=== PATIENT | female | born 2005 | race Caucasian/White ===

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

== ENCOUNTER 2024-03-10 13:13 | Emergency (ER) | payer BC, OTHER ==
--- NOTE | 2024-03-10 13:35 | ED ---
Abdominal Pain HPI - General Chief Complaint: Abdominal Pain Stated Complaint: Abd pain-Sent by [facility] Time Seen by Provider: 03/10/24 13:30 Source: patient, RN notes reviewed Mode of arrival: ambulatory Limitations: no limitations - History of Present Illness Initial Comments: This is a 18-year-old female with no significant past medical history who presents to the emergency department chief complaint of left lower pelvic pain that started this morning. Patient also states that she had an episode of blood in her stool this morning that she describes as clots within the stool. Patient is also having urinary symptoms including increased urgency and decreased urinary output over the last few days. She denies fevers, nausea, vomiting, dark or tarry sools, hememesis, epigastric pain, hematuria, back or flank pain. States that she is currently on her menstrual cycle with no abnormalities compared to previous cycles. - Related Data Home Medications Medication Instructions Recorded Confirmed No Known Home Medications 03/10/24 03/10/24 Allergies Allergy/AdvReac Type Severity Reaction Status Date / Time No Known Allergies Allergy Verified 03/10/24 14:01 Review of Systems ROS Statement: Those systems with pertinent positive or pertinent negative responses have been documented in the HPI. ROS Other: All systems not noted in ROS Statement are negative. Past Medical History Past Medical History: No Reported History History of Any Multi-Drug Resistant Organisms: None Reported Past Surgical History: No Surgical Hx Reported Past Psychological History: No Psychological Hx Reported Smoking Status: Never smoker Past Alcohol Use History: None Reported Past Drug Use History: Marijuana General Exam Limitations: no limitations General appearance: alert, in no apparent distress Head exam: Present: atraumatic, normocephalic, normal inspection Eye exam: Present: normal appearance, PERRL, EOMI. Absent: scleral icterus, conjunctival injection, periorbital swelling ENT exam: Present: normal exam, mucous membranes moist Neck exam: Present: normal inspection. Absent: tenderness, meningismus, lymphadenopathy Respiratory exam: Present: normal lung sounds bilaterally. Absent: respiratory distress, wheezes, rales, rhonchi, stridor Cardiovascular Exam: Present: regular rate, normal rhythm, normal heart sounds. Absent: systolic murmur, diastolic murmur, rubs, gallop, clicks GI/Abdominal exam: Present: soft, tenderness (LLQ/pelvic region), normal bowel sounds. Absent: distended, guarding, rebound, rigid Rectal exam: Present: normal inspection, normal rectal tone, heme (+) stool Extremities exam: Present: normal inspection, full ROM, normal capillary refill. Absent: tenderness, pedal edema, joint swelling, calf tenderness Back exam: Present: normal inspection Neurological exam: Present: alert, oriented X3, CN II-XII intact Psychiatric exam: Present: normal affect, normal mood Skin exam: Present: warm, dry, intact, normal color. Absent: rash Course Vital Signs 03/10/24 03/10/24 13:14 15:48 Temperature 97.9 F 98.7 F Pulse Rate 81 75 Respiratory 18 16 Rate Blood Pressure 131/57 117/74 O2 Sat by Pulse 98 98 Oximetry Medical Decision Making - Medical Decision Making Was pt. sent in by a medical professional or institution ([facility], BUILDING CONSTRUCTION INSPECTOR, urgent care, hospital, or skilled nursing...) When possible be specific @ -No Did you speak to anyone other than the patient for history (EMS, parent, family, police, friend...)? What history was obtained from this source @ -No Did you review nursing and triage notes (agree or disagree)? Why? @ -I reviewed and agree with nursing and triage notes Were old charts reviewed (outside hosp., previous admission, EMS record, old EKG, old radiological studies, urgent care reports/EKG's, skilled nursing records)? Report findings @ -No old charts were reviewed Differential Diagnosis (chest pain, altered mental status, abdominal pain women, abdominal pain men, vaginal bleeding, weakness, fever, dyspnea, syncope, headache, dizziness, GI bleed, back pain, seizure, CVA, palpatations, mental health, musculoskeletal)? @ -Differential Abdominal Pain Women: Appendicitis, Cholecystitis, diverticulosis, ischemic bowel, pancreatitis, hepatitis, UTI, gastroenteritis, AAA, incarcerated hernia, bowel obstruction, constipation, inflammatory bowel, hepatitis, peptic ulcer disease, splenic infarction, perforated viscus, vulvitis, ovarian torsion, PID, kidney stone, pl acenta abruption, this is not meant to be an all-inclusive list. EKG interpreted by me (3pts min.). @ -None X-rays interpreted by me (1pt min.). @ -None done CT interpreted by me (1pt min.). @ -None done U/S interpreted by me (1pt. min.). @ -Ultrasound of the pelvis reveals a 3.4 cm hyperechoic lesion in the right ovary recommend follow up in 6 to 8 weeks to consider evaluation. no evidence of Torsion of either side with no pelvic fluid noted. What testing was considered but not performed or refused? (CT, X-rays, U/S, labs)? Why? @ -None What meds were considered but not given or refused? Why? @ -None Did you discuss the management of the patient with other professionals (professionals i.e. , PA, BUILDING CONSTRUCTION INSPECTOR, lab, RT, psych nurse, forensic social worker, newswriter, teacher, anti air warfare operations officer, residential case manager)? Give summary @ -No Was smoking cessation discussed for >3mins.? @ -No Was critical care preformed (if so, how long)? @ -No Were there social determinants of health that impacted care today? How? (Homelessness, low income, unemployed, alcoholism, drug addiction, transportation, low edu. Level, literacy, decrease access to med. care, correction, rehab)? @ -No Was there de-escalation of care discussed even if they declined (Discuss DNR or withdrawal of care, Hospice)? DNR status @ -No What co-morbidities impacted this encounter? (DM, HTN, Smoking, COPD, CAD, Cancer, CVA, ARF, Chemo, Hep., AIDS, mental health diagnosis, sleep apnea, morbid obesity)? @ -None Was patient admitted / discharged? Hospital course, mention meds given and route, prescriptions, significant lab abnormalities, going to OR and other pertinent info. @ -Discharged. 18-year-old female with left lower quadrant and pelvic pain. On examination patient noted to have. Mild pain with palpation of the left lower pelvis. There is no pain, rebound tenderness, rigidity noted, normal and equal bowel sounds. Rectal examination no signs of external hemorrhoids, external sphincter tone inact. Patient CBC and CMP unremarkable.. Moderate leukocyte esterase and beta hCG negative. Stool occult blood positive. Patient laboratory testing unremarkable recommend follow-up outpatient with primary care provider for further evaluation of positive stool occult likely colonoscopy. Discussion with patient to follow-up with a repeat pelvic ultrasound in 6 to 8 weeks for resolution of hemorrhagic cyst. Patient is in agreement with this. Discussed strict return parameters with the patient. Discussed with Dr. Zurita. Patient states that she has taken the first dose of antibiotics prescribed by urgent care for her urinary tract infection, and the patient continues on course. Undiagnosed new problem with uncertain prognosis? @ -No Drug Therapy requiring intensive monitoring for toxicity (Heparin, Nitro, Insulin, Cardizem)? @ -No Were any procedures done? @ -No Diagnosis/symptom? @ -abdominal pain, hematochezia, hemorrhagic ovarian cyst Acute, or Chronic, or Acute on Chronic? @ -acute Uncomplicated (without systemic symptoms) or Complicated (systemic symptoms)? @ -uncomplicated Side effects of treatment? @ -No Exacerbation, Progression, or Severe Exacerbation? @ -No Poses a threat to life or bodily function? How? (Chest pain, [place], [place], pneumonia, PE, COPD, DKA, ARF, appy, cholecystitis, CVA, Diverticulitis, Homicidal, Suicidal, threat to staff... and all critical care pts) @ -No - Lab Data Result diagrams: 03/10/24 14:18 03/10/24 14:18 Lab Results 03/10/24 03/10/24 03/10/24 Range/Units 14:18 14:18 14:18 WBC 7.8 (4.0-11.0) k/uL RBC 4.89 (3.80-5.40) m/uL Hgb 14.3 (11.4-16.0) gm/dL Hct 45.3 (34.0-46.0) % MCV 92.8 (80.0-100.0) fL MCH 29.3 (25.0-35.0) pg MCHC 31.6 (31.0-37.0) g/dL RDW 12.3 (11.5-15.5) % Plt Count 270 (150-450) k/uL MPV 7.2 Neutrophils % 65 % Lymphocytes % 25 % Monocytes % 5 % Eosinophils % 2 % Basophils % 1 % Neutrophils # 5.1 (1.3-7.7) k/uL Lymphocytes # 2.0 (1.0-4.8) k/uL Monocytes # 0.4 (0-1.0) k/uL Eosinophils # 0.2 (0-0.7) k/uL Basophils # 0.1 (0-0.2) k/uL Sodium (137-145) mmol/L Potassium (3.5-5.1) mmol/L Chloride (98-107) mmol/L Carbon Dioxide (22-30) mmol/L Anion Gap mmol/L BUN (7-17) mg/dL Creatinine (0.52-1.04) mg/dL Est GFR (CKD-EPI)AfAm (>60 ml/min/1.73 sqM) Est GFR (CKD-EPI)NonAf (>60 ml/min/1.73 sqM) Glucose (74-99) mg/dL Calcium (8.4-10.2) mg/dL Total Bilirubin (0.2-1.3) mg/dL AST (14-36) U/L ALT (4-34) U/L Alkaline Phosphatase (38-126) U/L Total Protein (6.3-8.2) g/dL Albumin (3.5-5.0) g/dL Urine Color Light Yellow Urine Appearance Clear (Clear) Urine pH 6.5 (5.0-8.0) Ur Specific [place] 1.029 (1.001-1.035) Urine Protein Negative (Negative) Urine Glucose (UA) Negative (Negative) Urine Ketones Negative (Negative) Urine Blood Negative (Negative) Urine Nitrite Negative (Negative) Urine Bilirubin Negative (Negative) Urine Urobilinogen <2.0 (<2.0) mg/dL Ur Leukocyte Esterase Moderate H (Negative) Urine WBC 3 (0-5) /hpf Ur Squamous Epith Cells 5 H (0-4) /hpf Urine Mucus Rare H (None) /hpf Urine HCG, Qual (Not Detectd) Stool Occult Blood Positive H (Negative) 03/10/24 03/10/24 Range/Units 14:18 14:18 WBC (4.0-11.0) k/uL RBC (3.80-5.40) m/uL Hgb (11.4-16.0) gm/dL Hct (34.0-46.0) % MCV (80.0-100.0) fL MCH (25.0-35.0) pg MCHC (31.0-37.0) g/dL RDW (11.5-15.5) % Plt Count (150-450) k/uL MPV Neutrophils % % Lymphocytes % % Monocytes % % Eosinophils % % Basophils % % Neutrophils # (1.3-7.7) k/uL Lymphocytes # (1.0-4.8) k/uL Monocytes # (0-1.0) k/uL Eosinophils # (0-0.7) k/uL Basophils # (0-0.2) k/uL Sodium 139 (137-145) mmol/L Potassium 4.0 (3.5-5.1) mmol/L Chloride 106 (98-107) mmol/L Carbon Dioxide 24 (22-30) mmol/L Anion Gap 9 mmol/L BUN 16 (7-17) mg/dL Creatinine 0.60 (0.52-1.04) mg/dL Est GFR (CKD-EPI)AfAm >90 (>60 ml/min/1.73 sqM) Est GFR (CKD-EPI)NonAf >90 (>60 ml/min/1.73 sqM) Glucose 77 (74-99) mg/dL Calcium 9.2 (8.4-10.2) mg/dL Total Bilirubin 0.4 (0.2-1.3) mg/dL AST 25 (14-36) U/L ALT 17 (4-34) U/L Alkaline Phosphatase 86 (38-126) U/L Total Protein 8.3 H (6.3-8.2) g/dL Albumin 4.9 (3.5-5.0) g/dL Urine Color Urine Appearance (Clear) Urine pH (5.0-8.0) Ur Specific [place] (1.001-1.035) Urine Protein (Negative) Urine Glucose (UA) (Negative) Urine Ketones (Negative) Urine Blood (Negative) Urine Nitrite (Negative) Urine Bilirubin (Negative) Urine Urobilinogen (<2.0) mg/dL Ur Leukocyte Esterase (Negative) Urine WBC (0-5) /hpf Ur Squamous Epith Cells (0-4) /hpf Urine Mucus (None) /hpf Urine HCG, Qual Not Detected (Not Detectd) Stool Occult Blood (Negative) Disposition Clinical Impression: Fecal occult blood test positive, Abdominal pain, Ruptured ovarian cyst Narrative: Please return to the Emergency Department if symptoms worsen or any other concerns. 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 Disposition: HOME SELF-CARE Condition: Good Instructions (If sedation given, give patient instructions): Ruptured Ovarian Cyst (ED) Is patient prescribed a controlled substance at d/c from ED?: No Referrals: None,Stated [Primary Care Provider] - 1-2 days Time of Disposition: 15:41
[2024-03-10 14:39] LABS: Basophils # (A) 0.1 k/uL (0-0.2); Basophils % (A) 1 %; Eosinophils # (A) 0.2 k/uL (0-0.7); Eosinophils % (A) 2 %; HCT 45.3 % (34.0-46.0); HGB 14.3 gm/dL (11.4-16.0); Lymphocytes % (A) 25 %; MCH 29.3 pg (25.0-35.0); MCHC 31.6 g/dL (31.0-37.0); MCV 92.8 fL (80.0-100.0); Mean Platelet Volume 7.2; Monocytes # (A) 0.4 k/uL (0-1.0); Monocytes % (A) 5 %; Neutrophils # (A) 5.1 k/uL (1.3-7.7); Neutrophils % (A) 65 %; Platelet Count 270 k/uL (150-450); RBC 4.89 m/uL (3.80-5.40); RDW 12.3 % (11.5-15.5); WBC 7.8 k/uL (4.0-11.0)
[2024-03-10 14:42] LABS: Appearance,Urine Clear (Clear); Bilirubin,Urine Negative (Negative); Blood,Urine Negative (Negative); Color,Urine Light Yellow; Glucose,Urine (UA) Negative (Negative); Ketones,Urine Negative (Negative); Leukocyte Esterase,Urine Moderate (Negative); Mucus,Urine Rare /hpf; Nitrite,Urine Negative (Negative); PH, Urine 6.5 (5.0-8.0); Protein,Urine Negative (Negative); Specific Gravity,Urine 1.029 (1.001-1.035); Squamous Epithelial Cell,Urine 5 /hpf (0-4); Urobilinogen,Urine <2.0 mg/dL (<2.0); WBC,Urine 3 /hpf (0-5)
[2024-03-10 14:50] LABS: ALT 17 U/L (4-34); AST 25 U/L (14-36); African American GFR (CKD) >90 (>60 ml/min/1.73 sqM); Albumin 4.9 g/dL (3.5-5.0); Alkaline Phosphatase 86 U/L (38-126); Anion Gap 9 mmol/L; Blood Urea Nitrogen 16 mg/dL (7-17); Calcium 9.2 mg/dL (8.4-10.2); Carbon Dioxide 24 mmol/L (22-30); Chloride 106 mmol/L (98-107); Glucose 77 mg/dL (74-99); Non-African American GFR(CKD) >90 (>60 ml/min/1.73 sqM); Sodium 139 mmol/L (137-145); Total Bilirubin 0.4 mg/dL (0.2-1.3); Total Protein 8.3 g/dL (6.3-8.2)
--- NOTE | 2024-03-10 15:11 | US ---
EXAMINATION TYPE: US pelvic complete plus Dopplers DATE OF EXAM: 03/10/2024 COMPARISON: NONE CLINICAL INDICATION: Female, 18 years old with history of LLQ pain; Menses every two weeks x 2 years ( since placement of Nexplanon); New Nexplanon implant in September; LLQ pain x few weeks. TECHNIQUE: Transabdominal sonographic images of the pelvis were acquired. Transvaginal sonographic images were not medically necessary. Color Doppler and spectral waveform analysis of the ovarian art eries and veins. Date of LMP: 2 weeks ago and now EXAM MEASUREMENTS: Uterus: 6.6 x 3.4 x 4.0 cm Endometrial Stripe: 0.3 cm Right Ovary: 3.8 x 3.5 x 3.4 cm Left Ovary: 2.9 x 2.1 x 2.1 cm 1. Uterus: Anteverted and otherwise wnl 2. Endometrium: wnl 3. Right Ovary: ? Hemorrhagic cyst = 3.1 x 2.5 x 2.7 cm 4. Left Ovary: wnl Spectral, color and waveform doppler imaging shows superimposed arterial and venous flow within the ovaries; there is no evidence for ovarian torsion. 5. Bilateral Adnexa: wnl 6. Posterior cul-de-sac: wnl IMPRESSION: 1. A 3.1 cm round hypoechoic lesion of the right ovary, possible hemorrhagic cyst. Recommend follow-u p ultrasound in 6-8 weeks to ensure involution. 2. No sonographic evidence for ovarian torsion on either side. 3. No pelvic free fluid.
[2024-03-10 16:12] VITALS: BP 117/74; PULSE 75; RESP 16; TEMP 98.7
== END 2024-03-10 15:57 | disposition home or self-care (01) ==
LOC: EC 13:13
DX: N83.201 Unspecified ovarian cyst, right side (principal); R19.5 Other fecal abnormalities
CPT/HCPCS: 36415; 76856; 80053; 81001; 81025; 82272; 85025; 93975; 99284

== ENCOUNTER → 2024-03-21 | Outpatient (CLI) | payer BC ==
--- NOTE | 2024-03-21 15:52 | US ---
EXAMINATION TYPE: US pelvis complete transvag DATE OF EXAM: 03/21/2024 COMPARISON: US 03/10/2024 CLINICAL INDICATION: Female, 18 years old with history of R10.9UNSPECIFIED ABDOMINAL PAIN; Rt pelvic pain, Rt cyst noted 2 weeks ago through ER TECHNIQUE: Transvaginal (TV) and Transabdominal (TA) . Transabdominal sonographic images of the pel vis were acquired. Transvaginal sonographic images were medically necessary to better assess the fol lowing anatomy: Ovaries Date of LMP: 03/14/2024 EXAM MEASUREMENTS: Uterus: 7.8x3.5x4.6 cm Endometrial Stripe: 0.6 cm Right Ovary: 4.4x3.1x3.0 cm Left Ovary: obscured by bowel gas 1. Uterus: Anteverted wnl 2. Endometrium: wnl 3. Right Ovary: follicular cysts vs, dominant follicles with Cumulus oophorus. Largest cystic area m easures 3.0x2.2x2.2cm 4. Left Ovary: Obscured by overlying bowel gas Spectral, color and waveform doppler imaging shows good arterial and venous flow within the right o vary; there is no evidence for ovarian torsion. 5. Bilateral Adnexa: Obscured by overlying bowel gas 6. Posterior cul-de-sac: wnl exam limited by bowel gas IMPRESSION: 1. No evidence for acute pelvic process. 2. Complex right ovarian cyst with thin septations versus adjacent cysts/follicles. This measures up to 3.0 cm which is similar to prior on 03/10/2024 given differences in technique.
== END | disposition home or self-care (01) ==
LOC: RADUSWWP 14:14
PROVIDERS: ATTEND Internal Medicine
DX: N83.291 Other ovarian cyst, right side (principal)
CPT/HCPCS: 76830; 76856; 93976

== ENCOUNTER 2024-04-26 09:19 | Day surgery (SDC) | payer BC ==
[2024-04-26 10:09] VITALS: TEMP 98.1
[2024-04-26] MEDS: LACTATED RINGERS 1,000 ML IV SCH (10:18)
[2024-04-26] MEDS ORDERED: PROPOFOL 10 MG/ML 20 ML VIAL IV ONE (10:58)
[2024-04-26] MEDS ORDERED: LIDOCAINE 1% INJ 10MG/ML (20 ML MDV) ONE (10:58)
--- NOTE | 2024-04-26 11:09 | P.PCN ---
Date of Procedure: 04/26/24 Procedure(s) Performed: BRIEF HISTORY: Patient is a 18-year-old pleasant white female scheduled for an elective colonoscopy as a part of evaluation of intermittent rectal bleeding. PROCEDURE PERFORMED: Colonoscopy. PREOPERATIVE DIAGNOSIS: Intermittent rectal bleeding. IV sedation per Anesthesia. PROCEDURE: After informed consent was obtained, the patient, was brought into the endoscopy unit. IV sedation was administered by Anesthesia under continuous monitoring. Digital rectal examination was normal. Initially the Olympus CF-160 flexible video colonoscope was then inserted in the rectum, gradually advanced into the cecum without any difficulty. Careful examination was performed as the scope was gradually being withdrawn. Ileocecal valve and the appendiceal orifice were visualized and appeared normal. Prep was excellent. Mucosa of the cecum, ascending colon, transverse colon, descending colon, sigmoid colon, and rectum appeared normal. Retroflexion was performed in the rectum and sigmoid colon were seen. The patient tolerated the procedure well. IMPRESSION: Normal-appearing colon from rectum to cecum with no evidence of colorectal neoplasia.. Small internal hemorrhoids. RECOMMENDATIONS: Findings of this examination were discussed with the patient as well as her family. She was advised to be on high-fiber diet and take fiber supplements on a regular basis and avoid straining and constipation.
[2024-04-26 11:16] VITALS: RESP 14
[2024-04-26 11:32] VITALS: BP 109/71; PULSE 62
== END 2024-04-26 11:58 | disposition home or self-care (01) ==
LOC: ORWHC2ENDO 09:19
PROVIDERS: ATTEND Internal Medicine Gastroenterology
DX: K64.8 Other hemorrhoids (principal)
CPT/HCPCS: 81025; 45378; J2001; J2704

== ENCOUNTER → 2024-08-31 | Outpatient (CLI) | payer BC ==
--- NOTE | 2024-08-31 09:43 | US ---
EXAMINATION TYPE: US liver DATE OF EXAM: 08/31/2024 COMPARISON: NONE CLINICAL INDICATION: Female, 19 years old with history of R74.8 ABNORMAL LEVELS OF OTHER SERUM ENZYME S; LFTs TECHNIQUE: Grayscale and color Doppler imaging of the right upper quadrant was performed. FINDINGS: EXAM MEASUREMENTS: Liver Length: 13.9 cm Gallbladder Wall: 0.1 cm CBD: 0.2 cm Right Kidney: 10.7x4.1x4.9 cm [employer]IN [employer] NOTES: Pancreas: Tail obscured by overlying bowel gas Liver: wnl Gallbladder: wnl Evidence for sonographic Reyes's sign: No CBD: wnl Right Kidney: wnl Visualized portions of the pancreas are unremarkable. The liver is not cirrhotic without focal lesion identified. Echogenicity appears within normal limits. Gallbladder is within normal limits. No wall thickening, cholelithiasis, or surrounding fluid. Negative sonographic Reyes's sign. Common bile keyshawn t within normal limits. Right kidney is unremarkable without evidence of hydronephrosis, solid mass, or nephrolithiasis. IMPRESSION: Unremarkable right upper quadrant ultrasound. [facility], , 08/31/2024 9:41 AM
== END | disposition home or self-care (01) ==
LOC: RADUSWWP 08:29
PROVIDERS: ATTEND Internal Medicine
DX: R94.5 Abnormal results of liver function studies (principal)
CPT/HCPCS: 76705